=== PATIENT | female | born 1940 | race American Indian/Alaskan Native ===

== ENCOUNTER 2017-01-29 11:33 | Outpatient (CLI) | payer MEDICARE ==
--- NOTE | 2017-01-29 12:46 | XRay Report ---
Left shoulder 3 views: History: Left shoulder pain. Findings: [id number] arthritic changes of the a.c. joint and glenohumeral joint. Minimal sclerosis greater tuberosity. No soft tissue calcification. No fracture. 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 Sclerosis at the greater tuberosity may be related to old injury or chronic impingement.
== END 2017-01-29 11:34 | disposition home or self-care (01) ==
LOC: SPVIMAG 11:33
PROVIDERS: ATTEND Physical Medicine & Rehabilitation
DX: M19.012 Primary osteoarthritis, left shoulder (principal)